=== PATIENT | female | born 1995 | race Hispanic/Latino ===

== ENCOUNTER 2022-11-10 15:20 | Emergency (ER) | payer OTHER ==
[~2022-11-10] VITALS: Ht 157.5 cm; Wt 88.5 kg
[2022-11-10 16:10] LABS: BASOPHILS # (AUTO) 0.03 K/uL (0.00-0.20); BASOPHILS % (AUTO) 0.2 % (0.0-5.0); EOSINOPHILS # (AUTO) 0.03 K/uL (0.00-0.70); EOSINOPHILS % (AUTO) 0.2 % (0.0-8.0); HEMATOCRIT 36.3 % (36-48); IMMATURE GRANULOCYTE ABSOLUTE 0.05 K/uL (0-1); LYMPHOCYTES # (AUTO) 2.4 K/uL (1.0-4.8); LYMPHOCYTES % (AUTO) 17.6 % (21.0-51.0); MEAN CORPUSCULAR HEMOGLOBIN 27.8 pg (27.0-33.0); MEAN CORPUSCULAR HGB CONC 32.8 g/dL (32.0-36.0); MEAN CORPUSCULAR VOLUME 84.8 fL (79-99); MONOCYTES # (AUTO) 0.8 K/uL (0.1-1.0); MONOCYTES % (AUTO) 5.7 % (3.0-13.0); NEUTROPHILS # (AUTO) 10.3 K/uL (1.8-7.7); NEUTROPHILS % (AUTO) 75.9 % (40.0-77.0); PLATELET COUNT (AUTO) 314 K/uL (130-400); RED BLOOD CELL COUNT(AUTO) 4.28 MIL/uL (4.00-5.50); RED CELL DISTRIBUTION WIDTH 13.9 % (11.0-15.5); WHITE BLOOD COUNT (AUTO) 13.6 K/uL (4.8-10.8)
[2022-11-10 16:22] LABS: CREATININE 0.6 mg/dL (0.5-1.5); POTASSIUM 3.4 mmol/L (3.5-5.1)
[2022-11-10 16:26] LABS: ALBUMIN 3.9 g/dL (3.5-5.0); BILIRUBIN,TOTAL 0.4 mg/dL (0.2-1.0); TOTAL PROTEIN, SERUM 8.6 g/dL (6.0-8.3)
[2022-11-10 16:35] LABS: HCG,QUALITATIVE URINE NEGATIVE (NEGATIVE)
[2022-11-10 16:40] LABS: APPEARANCE,URINE CLEAR (CLEAR); BILIRUBIN,URINE NEGATIVE (NEGATIVE); COLOR,URINE YELLOW (YELLOW); GLUCOSE, URINE (UA) NEGATIVE (NEGATIVE); KETONES,URINE NEGATIVE (NEGATIVE); LEUKOCYTE ESTERASE ,URINE 75 Leu/uL (NEGATIVE); NITRATE,URINE NEGATIVE (NEGATIVE); OCCULT BLOOD,URINE NEGATIVE (NEGATIVE); PH,URINE 5.5 (5.0-8.0); PROTEIN,URINE 20 mg/dL (NEGATIVE); UROBILINOGEN,URINE 0.2 mg/dL (0.2-1.0)
[2022-11-10 16:42] LABS: ADD UA MICROSCOPIC YES
[2022-11-10 16:52] LABS: BACTERIA,URINE FEW /HPF (None Seen); MUCUS,URINE FEW LPF (None Seen); SQUAMOUS EPITHELIAL CELL,UR MOD /HPF (0-2)
[2022-11-10] MEDS ORDERED: CLINDAMYCIN IVPB 600MG/50ML 50 ML IV SCH (17:30)
[2022-11-10] MEDS ORDERED: CLINDAMYCIN 150 MG CAP ONE (18:35)
[2022-11-10 18:44] VITALS: BP 120/75; PULSE 108; RESP 16; O2SAT 99
[2022-11-10] MEDS ORDERED: CLIN-141 PO (18:49)
[2022-11-10] MEDS ORDERED: CLINDAMYCIN 150 MG CAP PO ONE (19:00)
[2022-11-10] MEDS ORDERED: IOHEXOL-350 75 ML VIAL IV ONE (19:02)
== END 2022-11-10 19:22 | disposition home or self-care (01) ==
LOC: EDH 15:20
DX: K05.219 Aggressive periodontitis, localized, unspecified severity (principal); K02.7 Dental root caries; Z98.890 Other specified postprocedural states
CPT/HCPCS: 99285; 70487; 80053; 84703; 85025; 87040 ×2; 87088; 83605; 81001; 81025; 36415; J3490; Q9967

== ENCOUNTER 2024-02-14 09:34 | Emergency (ER) | payer BC, MEDICAID ==
[~2024-02-14] VITALS: Ht 157.5 cm; Wt 77.1 kg
[~2024-02-14 09:34] MED LIST: CLIN-141 PO
--- NOTE | 2024-02-14 10:02 | ERN ---
General Chief Complaint: Chest Pain Stated Complaint: CHEST PAIN Time Seen by MD: 09:58 Time Seen by Midlevel: 09:58 Source: patient History of Present Illness Initial Comments Patient is a 28-year-old female with no significant past medical history presenting to the emergency department with chest tightness. She states that last night she developed the chest tightness before going to bed. She attributed her chest tightness to a coffee that she had drank earlier today. This morning she reports waking up with a sensation of chest tightness so she decided to report to the ER for further evaluation. Where she pain but does report an uncomfortable sensation described as tightness. She denies any shortness of breath, nausea, vomiting, or any other symptoms at this time. Denies being . Denies being on control. Denies taking any other medications. 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 Past Medical History Past Medical History: No Pertinent History Past Surgical History: Family History Family History: Negative Social History Social History: Negative, Lives with family Female( History) LMP: Jan 31, 2024 : 1 Para: 1 Aborts: 0 ROS Dictation CONSTITUTIONAL: Negative except for HPI HEAD/FACE: Negative except for HPI EENT: Negative except for HPI RESPIRATORY: Negative except for HPI GASTROINTESTINAL/ABDOMINAL: Negative except for HPI GENITOURINARY: Negative except for HPI MUSCULOSKELETAL: Negative except for HPI INTEGUMENTARY: Negative except for HPI NEUROLOGICAL/PSYCH: Negative except for HPI HEMATOLOGIC/LYMPHATIC: Negative except for HPI All Systems Negative, Except as noted above. 13 point review of systems assessed and all negative except for above. Physical Exam Physical Exam Dictation Vital Signs reviewed General Appearance: Alert, oriented x 3, no acute distress, well developed, nourished. Head and Face: non-traumatic. Eyes: PERRL, pink conjunctivas, eyelid no trauma, anterior chamber with arcus senilis. Ears: Pinnas intact and no signs of trauma or erythema ear canals clear and no discharge TM no erythema Nose: No discharge, no bleeding. Oropharynx: Mouth normal, tongue pink, pharynx clear,no erythema, tonsils no exudates, no abscesses noted, mucous membrane moist Neck: Supple, non-tender, no thyromegaly, no masses, no JVD, no bruits Breast:Deferred Chest:No tenderness, no crepitus, no paradoxical movement, no retractions Lungs:Clear, well-ventilated, symmetric, no rales, no wheezing, no rhonchi, no stridor, good breath sounds bilaterally Heart: Regular rate, regular rhythm, no murmur, no gallops Vascular: no peripheral edema, Abdomen: Soft, positive bowel sounds, nondistended, no guarding, nontender, no rebound, no masses no hepatomegaly, no splenomegaly, no Jin's sign, no hernias. Rectal: Deferred Genital: Deferred Neurological: Normal speech, motor function intact, sensory function intact Musculoskeletal: Neck nontender, full range of motion, back nontender, full range of motion, Extremities: nontender, full range of motion Skin: Color pink, dry, no turgor, no rash, no lacerations, no abrasions, no contusions. Lymphatic: Deferred Results Laboratory and Microbiology Lab and Micro Result Laboratory Tests Test 02/14/24 09:58 White Blood Count 6.7 K/uL (4.8-10.8) Red Blood Count 4.25 MIL/uL (4.00-5.50) Hemoglobin 13.1 g/dL (12.0-16.0) Hematocrit 38.5 % (36-48) Mean Corpuscular Volume 90.6 fL (79-99) Mean Corpuscular Hemoglobin 30.8 pg (27.0-33.0) Mean Corpuscular Hemoglobin Concent 34.0 g/dL (32.0-36.0) Red Cell Distribution Width 13.1 % (11.0-15.5) Platelet Count 274 K/uL (130-400) Mean Platelet Volume 9.5 fL (7.5-10.5) Immature Granulocyte % (Auto) 0.3 % (0-1) Neutrophils (%) (Auto) 56.7 % (40.0-77.0) Lymphocytes (%) (Auto) 37.0 % (21.0-51.0) Monocytes (%) (Auto) 4.9 % (3.0-13.0) Eosinophils (%) (Auto) 0.7 % (0.0-8.0) Basophils (%) (Auto) 0.4 % (0.0-5.0) Neutrophils # (Auto) 3.8 K/uL (1.8-7.7) Lymphocytes # (Auto) 2.5 K/uL (1.0-4.8) Monocytes # (Auto) 0.3 K/uL (0.1-1.0) Eosinophils # (Auto) 0.05 K/uL (0.00-0.70) Basophils # (Auto) 0.03 K/uL (0.00-0.20) Absolute Immature Granulocyte (auto 0.02 K/uL (0-1) Nucleated Red Blood Cells 0.0 % (0.0-0.19) Urine Color LIGHT-YELLOW (YELLOW) Urine Appearance CLEAR (CLEAR) Urine pH 6.5 (5.0-8.0) Urine Specific [place] 1.019 (1.001-1.031) Urine Protein NEGATIVE mg/dL (NEGATIVE) Urine Glucose (UA) NEGATIVE mg/dL (NEGATIVE) Urine Ketones NEGATIVE mg/dL (NEGATIVE) Urine Occult Blood NEGATIVE (NEGATIVE) Urine Nitrate NEGATIVE (NEGATIVE) Urine Bilirubin NEGATIVE mg/dL (NEGATIVE) Urine Urobilinogen 0.2 mg/dL (0.2-1.0) Urine Leukocyte Esterase NEGATIVE Kandice/uL Urine HCG, Qualitative NEGATIVE (NEGATIVE) Sodium Level 141 mmol/L (136-145) Potassium Level 4.2 mmol/L (3.5-5.1) Chloride Level 102 mmol/L (101-111) Carbon Dioxide Level 31 mmol/L (21-32) Blood Urea Nitrogen 9 mg/dL (7-18) Creatinine 0.6 mg/dL (0.5-1.0) Glomerular Filtration Rate Calc 126 mL/min (>90) Random Glucose 95 mg/dL (70-105) Total Calcium 8.6 mg/dL (8.5-10.1) Total Creatine Kinase 104 U/L (21-232) Troponin I High Sensitivity < 4 ng/L (4-50) L B-Type Natriuretic Peptide 15 pg/mL (0-100) Labs Reviewed?: Yes EKG/XRAY/US/CT/MRI EKG Comment Date: February 14, 2024 Time: 9:44 a.m. Ventricular rate: 69 beats per minute HI interval: 146 QRS duration: 109 QT/QTc: 388/415 EKG interpretation: Normal sinus rhythm with a ventricular rate of 69 beats per minute, no ST elevations or bundle branch blocks noted Reviewed by ED Attending RUMA MDM: Patient is a 28-year-old female with no significant past medical history presenting to the emergency department with chest tightness since yesterday. On physical examination patient is in no acute distress. The remainder of her physical examination is unremarkable. Her initial vital signs are stable with a normal blood pressure, and normal O2 sats. Patient is in no acute respiratory distress. Her CBC and chemistries are unremarkable. Her cardiac enzymes are negative. Her EKG shows normal sinus rhythm with a ventricular rate of 69 beats per minute. No ST elevations or bundle branch blocks are noted. Her chest x- ray does not show any acute abnormality. On repeat evaluation she does report feeling improved. Symptoms most likely caused by anxiety. She has a heart score of 0. Patient has a low risk for an acute coronary syndrome. Patient will be discharged home with close outpatient follow up. Return precautions discussed Differential diagnosis: Acute coronary syndrome, anxiety, pneumonia, pneumothorax There are no social concerns with this patient. Prescription drug management Prescriptions will include: None Medical management and examination interpretation discussions were had by me with other qualified healthcare professionals as indicated for the patient's care. ED Course Orders Procedure Category Date Status Time 12 Lead Ekg Tracing- EKG 02/14/24 Complete Technical 09:37 Cbc With Differential LAB 02/14/24 Complete 09:48 B-Type Natriuretic LAB 02/14/24 Complete Peptide 09:48 Chest 1vw RAD 02/14/24 Resulted 09:48 12 Lead Ekg Tracing- EKG 02/14/24 Logged Technical 09:48 ,Urine Test LAB 02/14/24 Complete 09:48 Creatine Kinase, Total LAB 02/14/24 Complete 09:48 Troponin I High LAB 02/14/24 Complete Sensitivity 09:48 Urinalysis Profile LAB 02/14/24 Complete 09:48 Basic Metabolic Panel LAB 02/14/24 Complete 09:48 Vital Signs Date Time Temp Pulse Resp B/P (MAP) Pulse Ox O2 Delivery O2 Flow Rate FiO2 02/14/24 11:29 98.6 88 20 132/85 99 Room Air* 0 21 02/14/24 09:53 98.6 97 20 128/88 99 Room Air* 0 21 02/14/24 09:35 98.6 97 20 128/88 99 Room Air 0 HEART Score Response (Comments) Value History: Low suspicion (0) 0 EKG: Normal 0 Age: < 45yrs (0) 0 Risk Factors: No known risk factors (0) 0 Initial Troponin: Normal limit (0) 0 HEART Score Risk: Low Risk for MACE (1-3) Total 0 DX & DISP Disposition: Discharge Departure Impression: Primary Impression: Non-cardiac chest pain Condition: Stable Additional Instructions: Your blood work today is unremarkable. Your cardiac enzymes are negative. Your EKG is normal. Your chest x-ray does not show any acute abnormality. Follow up with your primary care doctor within the next week. If your symptoms persist or do not improve return to the emergency department for further evaluation. Referrals: NONE (PCP) Time of Disposition: 11:23 I have reviewed the case, and I agree with, Diagnosis and Plan I performed the substantive portion of the visit. I have reviewed and personally made and approve the management plan that is documented in the note by myself or the KANDICE. I acknowledge for responsibility for the patient's management plan. TORI CHEATHAM Feb 14, 2024 10:02 JUSTINA LIM DO Feb 14, 2024 14:17
--- NOTE | 2024-02-14 10:07 | EKG ---
[facility] Test Date: 2024-02-14 Test Time: 09:44:26 Pat Name: VIKTOR YOUCanpartment: [facility] Room: Gender: F Vice President Of Business Development: [id number] : 1995 Requested By: JUSTINA LIM Order Number: [id number] Reading MD: Matthew More Measurements Intervals [place] Rate: 69 P: 39 ID: [id number] QRS: -31 QRSD: 109 T: 28 QT: 388 QTc: 415 Interpretive Statements Sinus rhythm Left axis deviation No previous ECG available for comparison Electronically Signed On 02-15-2024 19:30:45 LOCOMOTIVE OPERATOR by Matthew More Please click the below link to view image of tracing.
[2024-02-14 10:08] LABS: BASOPHILS # (AUTO) 0.03 K/uL (0.00-0.20); BASOPHILS % (AUTO) 0.4 % (0.0-5.0); EOSINOPHILS # (AUTO) 0.05 K/uL (0.00-0.70); EOSINOPHILS % (AUTO) 0.7 % (0.0-8.0); HEMATOCRIT 38.5 % (36-48); IMMATURE GRANULOCYTE ABSOLUTE 0.02 K/uL (0-1); LYMPHOCYTES # (AUTO) 2.5 K/uL (1.0-4.8); MEAN CORPUSCULAR HEMOGLOBIN 30.8 pg (27.0-33.0); MEAN CORPUSCULAR VOLUME 90.6 fL (79-99); MONOCYTES # (AUTO) 0.3 K/uL (0.1-1.0); MONOCYTES % (AUTO) 4.9 % (3.0-13.0); NEUTROPHILS # (AUTO) 3.8 K/uL (1.8-7.7); NEUTROPHILS % (AUTO) 56.7 % (40.0-77.0); PLATELET COUNT (AUTO) 274 K/uL (130-400); RED BLOOD CELL COUNT(AUTO) 4.25 MIL/uL (4.00-5.50); RED CELL DISTRIBUTION WIDTH 13.1 % (11.0-15.5); WHITE BLOOD COUNT (AUTO) 6.7 K/uL (4.8-10.8)
[2024-02-14 10:14] LABS: CREATININE 0.6 mg/dL (0.5-1.0); POTASSIUM 4.2 mmol/L (3.5-5.1)
[2024-02-14 10:20] LABS: APPEARANCE,URINE CLEAR (CLEAR); BILIRUBIN,URINE NEGATIVE (NEGATIVE); COLOR,URINE LIGHT-YELLOW (YELLOW); GLUCOSE, URINE (UA) NEGATIVE (NEGATIVE); KETONES,URINE NEGATIVE (NEGATIVE); LEUKOCYTE ESTERASE ,URINE NEGATIVE Leu/uL (NEGATIVE); NITRATE,URINE NEGATIVE (NEGATIVE); OCCULT BLOOD,URINE NEGATIVE (NEGATIVE); PH,URINE 6.5 (5.0-8.0); PROTEIN,URINE NEGATIVE (NEGATIVE); UROBILINOGEN,URINE 0.2 mg/dL (0.2-1.0)
[2024-02-14 10:31] LABS: ADD UA MICROSCOPIC NO
[2024-02-14 10:34] LABS: HCG,QUALITATIVE URINE NEGATIVE (NEGATIVE)
[2024-02-14 10:43] LABS: B-TYPE NATRIURETIC PEPTIDE 15 pg/mL (0-100)
[2024-02-14 11:29] VITALS: BP 132/85; PULSE 88; RESP 20; TEMP 98.6; O2SAT 99
--- NOTE | 2024-02-14 12:03 | HMCIMG ---
CHEST 1VW REASON: chest pain COMPARISON: None FINDINGS: Single view of the chest was obtained. Lungs are clear. Heart size is normal. There is no pulmonary vascular congestion. Mediastinum and bony thorax appear unremarkable. IMPRESSION: 1. Normal single view chest x-ray.
== END 2024-02-14 11:30 | disposition home or self-care (01) ==
LOC: EDH 09:34
DX: R07.89 Other chest pain (principal); Z79.899 Other long term (current) drug therapy
CPT/HCPCS: 36415; 71045; 80048; 81003; 81025; 82550; 83880; 84484; 85025; 93005; 99284